=== PATIENT | male | born 1955 | race Caucasian/White ===

== ENCOUNTER 2018-06-02 15:54 | Outpatient (CLI) | payer SELFPAY ==
[2016-02-21 03:42] VITALS: BP 124/66
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
== END 2018-06-02 15:59 | disposition home or self-care (01) ==
LOC: RAD 15:54
PROVIDERS: ATTEND Family Medicine
DX: S52.292A Other fracture of shaft of left ulna, initial encounter for closed fracture (principal)
CPT/HCPCS: 73090